=== PATIENT | female | born 1985 | race African-American/Black ===

== ENCOUNTER 2021-06-06 22:47 | Emergency (ER) | payer SELFPAY ==
[~2021-06-06] VITALS: Ht 165.1 cm; Wt 123.8 kg
[2021-06-07 01:41] LABS: CLARITY,URINE CLEAR (CLEAR); COLOR,URINE YELLOW (YELLOW); KETONES,URINE NEGATIVE (NEGATIVE); LEUKOCYTE ESTERASE ,URINE TRACE (NEGATIVE); NITRITE,URINE NEGATIVE (NEGATIVE); PROTEIN,URINE DIPSTICK NEGATIVE (NEGATIVE); URINE UROBILINOGEN 0.2 mg/dL (0.2 - 1)
[2021-06-07 01:45] LABS: BACTERIA,URINE FEW /HPF; EPITHELIAL CELLS,URINE MODERATE /LPF
[2021-06-07] MEDS ORDERED: CEPHALEXIN500 MG PO (01:49)
[2021-06-07] MEDS ORDERED: CEPHALEXIN 500 MG CAP PO SCH (02:00)
== END 2021-06-07 01:00 | disposition home or self-care (01) ==
LOC: ER 22:54
DX: N39.0 Urinary tract infection, site not specified (principal); I10 Essential (primary) hypertension
CPT/HCPCS: 81001; 99283